=== PATIENT | male | born 1960 | race Two or more races ===

== ENCOUNTER 2025-01-29 10:22 | Emergency (ER) | payer OTHER ==
[~2025-01-29] VITALS: Ht 170.2 cm; Wt 104.3 kg
[2025-01-29] MEDS ORDERED: 0.9 % SODIUM CHLORIDE 1,000 ML IV ONE (13:00)
[2025-01-29] MEDS ORDERED: CEFTRIAXONE SODIUM 1,000 MG VIAL IV ONE (13:15)
[2025-01-29] MEDS ORDERED: TAMSULOSIN HCL 0.4 MG CAP PO ONE ×2 (13:15→13:46)
[2025-01-29 13:34] LABS: BASO % 0.4 % (0.1-1.2); EOS # 0.09 (0.04-0.54); EOS % 1.3 % (0.7-7.0); LYMPH # 1.79 (1.18-3.74); LYMPH % 25.9 % (19.3-53.1); MEAN PLATELET VOLUME 10.20 fl (9.4-12.4); MONO # 0.71 (0.24-0.82); MONO % 10.3 % (4.7-12.5); NEUT # 4.27 (1.56-6.13); NEUT % 61.8 % (34.0-71.1); RED CELL DISTRIBUTION WIDTH 13.3 % (11.6-14.4)
[2025-01-29] MEDS ORDERED: CEFTRIAXONE SODIUM 1,000 MG VIAL ONE (13:46)
[2025-01-29 13:58] LABS: INR 1.05
[2025-01-29 14:34] LABS: ALT/SGPT 29.0 U/L (12-78); AST/SGOT 18.0 U/L (15-37); BILIRUBIN TOTAL 0.77 mg/dL (0.3-1.2); BUN CREA RATIO 22.0 (7.0-25.0); CREATININE SERUM 0.96 mg/dL (0.70-1.30); GFR 79.37; GLOBULINA 3.0 G/DL (2.4-3.5); GLUCOSE FASTING 88.0 mg/dL (65-100); OSMOLALITY SERUM 284.0 MOSM/KG (275-295)
[2025-01-29 15:32] LABS: URINE APPEARANCE Clear; URINE BILIRRUBIN Negative (NEGATIVE); URINE BLOOD Large; URINE COLOR Yellow; URINE GLUCOSE Negative (NEGATIVE); URINE KETONE Negative (NEGATIVE); URINE LEUKOCYTE Moderate; URINE NITRATE Positive; URINE UROBILINOGEN 1.0 E.U./dl
[2025-01-29 15:38] LABS: URINE BACTERIA 188.7 uL (0.0-1933); URINE EPITHELIAL CELLS 1.6 uL (0.0-38.8); URINE RBC 3089.6 uL (0.0-20.8); URINE WBC 957.7 uL (0.0-23.2)
[2025-01-29 15:59] LABS: URINE CAST 0.99 uL (0.0-1.40); URINE PROTEIN 100 (NEGATIVE)
[2025-01-29 16:00] LABS: TYPE CELLS SQUAMOUS
[2025-01-29] MEDS ORDERED: TAMSULOSIN HCL0.4 MG PO (22:59)
[2025-01-29] MEDS ORDERED: PEPCID AC20 MG PO (22:59)
[2025-01-29] MEDS ORDERED: MACROBID 100 M100 MG PO (22:59)
[2025-01-29] MEDS ORDERED: KETO10TA2 PO (22:59)
== END 2025-01-30 00:28 | disposition home or self-care (01) ==
LOC: ER 10:23
DX: N40.1 Benign prostatic hyperplasia with lower urinary tract symptoms (principal); R33.8 Other retention of urine; Z87.442 Personal history of urinary calculi; R31.9 Hematuria, unspecified; N39.0 Urinary tract infection, site not specified